=== PATIENT | female | born 1940 ===

== ENCOUNTER → 2018-12-16 | Outpatient (CLI) | payer MEDICARE ==
[~2018-12-16] MED LIST: IBUP200
[2018-12-16 08:50] LABS: BASOPHILS ABSOLUTE AUTO 0.04 K/mm3 (0.00-0.23); BASOPHILS PERCENT AUTO 0 % (0-2); EOSINOPHILS ABSOLUTE AUTO 0.15 K/mm3 (0.00-0.68); EOSINOPHILS PERCENT AUTO 1 % (0-6); Hematocrit 43.5 % (33.0-51.0); Hemoglobin 14.3 g/dL (11.5-16.0); IMMATURE GRAN ABSOLUTE AUTO 0.03 K/mm3 (0.00-0.10); IMMATURE GRAN PERCENT AUTO 0 % (0-1); LYMPHOCYTES ABSOLUTE AUTO 1.92 K/mm3 (0.84-5.20); LYMPHOCYTES PERCENT AUTO 18 % (21-46); MONOCYTES ABSOLUTE AUTO 0.67 K/mm3 (0.16-1.47); MONOCYTES PERCENT AUTO 6 % (4-13); Mean Corpuscular HGB 27.9 pg (26.0-34.0); Mean Corpuscular HGB Conc 32.9 g/dL (31.5-36.5); Mean Corpuscular Volume 85 fL (80-100); Mean Platelet Volume 10.2 fL (9.1-12.4); NEUTROPHILS PERCENT AUTO 73 % (41-73); Platelet Count 264 K/mm3 (150-400); RDW Coefficient Variation 13.7 % (11.7-14.2); RDW Standard Deviation 42.5 fL (35.1-46.3); Red Blood Cell Count 5.12 M/mm3 (3.80-5.20); White Blood Cell Count 10.51 K/mm3 (4.00-11.30)
[2018-12-16 09:03] LABS: Alanine Aminotransfer (ALT/SGP 14 U/L (12-78); Albumin, Blood 3.6 g/dL (3.4-5.0); Albumin/Globulin Ratio 0.9 (0.8-1.8); Alk Phos 74 U/L (40-126); Anion Gap 11 mmol/L (6-16); Aspartate Aminotrans (AST/SGOT 13 U/L (12-37); Bilirubin, Total 0.3 mg/dL (0.1-1.0); Blood Urea Nitrogen 23 mg/dL (8-24); Bun/Creatinine Ratio 29.5 (12.0-20.0); CO2, Blood 25 mmol/L (21-32); Calcium, Blood 8.9 mg/dL (8.5-10.1); Chloride, Blood 103 mmol/L (98-108); Creatinine, Blood 0.78 mg/dL (0.40-1.00); Glomerular Filtration Rate >60 (60-); Glucose, Blood 115 mg/dL (70-99); Potassium, Blood 4.1 mmol/L (3.5-5.5); Sodium, Blood 139 mmol/L (136-145); Total Protein, Blood 7.6 g/dL (6.4-8.2)
== END | disposition home or self-care (01) ==
LOC: LAB SHORT 08:47 → LAB EV 08:47
PROVIDERS: Physician Assistant Medical
DX: M79.602 Pain in left arm (principal)
CPT/HCPCS: 80053; 85025

== ENCOUNTER 2022-11-02 13:09 | Inpatient (IN) | payer OTHER, MEDICARE ==
[~2022-11-02] VITALS: Ht 172.7 cm; Wt 102.7 kg
[2022-11-02 14:53] LABS: BASOPHILS ABSOLUTE AUTO 0.02 K/mm3 (0.00-0.23); BASOPHILS PERCENT AUTO 0 % (0-2); EOSINOPHILS ABSOLUTE AUTO 0.06 K/mm3 (0.00-0.68); EOSINOPHILS PERCENT AUTO 0 % (0-6); Hematocrit 36.8 % (33.0-51.0); Hemoglobin 11.1 g/dL (11.5-16.0); IMMATURE GRAN ABSOLUTE AUTO 0.09 K/mm3 (0.00-0.10); IMMATURE GRAN PERCENT AUTO 1 % (0-1); LYMPHOCYTES ABSOLUTE AUTO 1.56 K/mm3 (0.84-5.20); LYMPHOCYTES PERCENT AUTO 9 % (21-46); MONOCYTES ABSOLUTE AUTO 1.08 K/mm3 (0.16-1.47); MONOCYTES PERCENT AUTO 6 % (4-13); Mean Corpuscular HGB 25.2 pg (26.0-34.0); Mean Corpuscular HGB Conc 30.2 g/dL (31.5-36.5); Mean Corpuscular Volume 84 fL (80-100); Mean Platelet Volume 10.3 fL (9.1-12.4); NEUTROPHILS PERCENT AUTO 84 % (41-73); NRBC ABSOLUTE 0.03 K/mm3 (0.00-0.02); NRBC Auto 0.2 /100 WBC (0.0-0.2); Platelet Count 327 K/mm3 (150-400); RDW Coefficient Variation 16.6 % (11.7-14.2); RDW Standard Deviation 47.5 fL (35.1-46.3); White Blood Cell Count 17.41 K/mm3 (4.00-11.30)
[2022-11-02 14:56] LABS: Source, Urine Foley catheter
[2022-11-02 14:57] LABS: Albumin, Blood 2.2 g/dL (3.4-5.0); Albumin/Globulin Ratio 0.5 (0.8-1.8); Bilirubin, Total 0.8 mg/dL (0.1-1.0); Bun/Creatinine Ratio 90.9 (12.0-20.0); Calcium, Blood 9.3 mg/dL (8.5-10.1); Creatinine, Blood 0.78 mg/dL (0.40-1.00); Globulin, Blood 4.7 g/dL (2.2-4.0); Potassium, Blood 3.7 mmol/L (3.5-5.5); Total Protein, Blood 6.9 g/dL (6.4-8.2)
[2022-11-02 15:15] LABS: Creatine Kinase MB 18.2 ng/mL (0.0-3.6); Creatine Kinase MB Index 4.2 (0.0-4.0)
[2022-11-02 15:16] LABS: Appearance, Urine Cloudy (Clear); Bilirubin, Urine Neg (Neg); Blood, Urine 4+ (Neg); Color, Urine Amber (P-Yellow); Glucose Qualitative, Urine Neg (Neg); Ketones, Urine Neg (Neg); Leukocyte Esterase, Urine 3+ (Neg); Nitrite, Urine Neg (Neg); Protein, Urine 1+ (Neg); Urobilinogen, Urine 1+ (Normal)
[2022-11-02 16:25] LABS: Base Excess Venous 1.9 mmol/L; Bicarbonate Venous 25.8 mmol/L (24.0-30.0); PCO2 Venous 43.6 mmHg (38-42)
[2022-11-02 16:46] LABS: Magnesium, Blood 2.8 mg/dL (1.6-2.4)
[2022-11-02 16:47] LABS: Thyroid Stimulating Hormone 4.09 uIU/mL (0.360-4.800)
[2022-11-02 17:08] LABS: Influenza A, PCR NEGATIVE (NEGATIVE); Influenza B, PCR NEGATIVE (NEGATIVE); Resp Syncytial Virus, PCR NEGATIVE (NEGATIVE); SARS-Cov-2 (COVID-19) PCR, MMC NEGATIVE (NEGATIVE)
[2022-11-02 17:20] LABS: Bacteria Many /hpf; Squamous Epithelial Cells Few /hpf (Few); White Blood Cells, Urine TNTC /hpf (0-5)
[2022-11-02 23:14] LABS: Hematocrit 32.3 % (33.0-51.0); Hemoglobin 9.2 g/dL (11.5-16.0)
[2022-11-02 23:35] LABS: Bun/Creatinine Ratio 73.3 (12.0-20.0); Calcium, Blood 8.4 mg/dL (8.5-10.1); Creatinine, Blood 1.05 mg/dL (0.40-1.00); Potassium, Blood 3.7 mmol/L (3.5-5.5)
[2022-11-03 04:15] LABS: BASOPHILS ABSOLUTE AUTO 0.03 K/mm3 (0.00-0.23); BASOPHILS PERCENT AUTO 0 % (0-2); EOSINOPHILS ABSOLUTE AUTO 0.03 K/mm3 (0.00-0.68); EOSINOPHILS PERCENT AUTO 0 % (0-6); Hematocrit 33.2 % (33.0-51.0); IMMATURE GRAN ABSOLUTE AUTO 0.14 K/mm3 (0.00-0.10); IMMATURE GRAN PERCENT AUTO 1 % (0-1); LYMPHOCYTES ABSOLUTE AUTO 1.55 K/mm3 (0.84-5.20); LYMPHOCYTES PERCENT AUTO 7 % (21-46); MONOCYTES ABSOLUTE AUTO 1.25 K/mm3 (0.16-1.47); MONOCYTES PERCENT AUTO 6 % (4-13); Mean Corpuscular HGB 25.1 pg (26.0-34.0); Mean Corpuscular HGB Conc 30.1 g/dL (31.5-36.5); Mean Corpuscular Volume 83 fL (80-100); Mean Platelet Volume 10.7 fL (9.1-12.4); NEUTROPHILS ABSOLUTE AUTO 17.89 K/mm3 (1.96-9.15); NEUTROPHILS PERCENT AUTO 86 % (41-73); NRBC ABSOLUTE 0.06 K/mm3 (0.00-0.02); NRBC Auto 0.3 /100 WBC (0.0-0.2); Platelet Count 307 K/mm3 (150-400); Red Blood Cell Count 3.99 M/mm3 (3.80-5.20); White Blood Cell Count 20.89 K/mm3 (4.00-11.30)
[2022-11-03 04:35] LABS: Albumin/Globulin Ratio 0.5 (0.8-1.8); Bilirubin, Total 0.8 mg/dL (0.1-1.0); Bun/Creatinine Ratio 71.1 (12.0-20.0); Calcium, Blood 8.5 mg/dL (8.5-10.1); Creatinine, Blood 1.14 mg/dL (0.40-1.00); Globulin, Blood 4.4 g/dL (2.2-4.0); Total Protein, Blood 6.4 g/dL (6.4-8.2)
--- NOTE | 2022-11-03 05:37 | NUR ---
SHIFT SUMMARY: PT ADMITTED TO UNIT AT 0025. TRANSFERED FROM [facility] VIA SLIDER SHEET. PT ORIENTED TO SELF AND LOCATION, MENTATION VARIES, ORIENTED TO ONLY SELF AT TIMES. WOUNDS NOTED ON PT LEFT SIDE, PHTOGRAPHS TAKEN AND PLACED IN CHART. ABRASIANS ALSO NOTED ON PT'S ARMS AND LEGS. PT DENIES HAVING ANY PAIN BUT YELLS OUT WHEN MOVED SUDDENTLY. REPOSITIONED Q2-3H TO PREVENT FURTHER SKIN BREAKDOWN. HR IS SR WITH PVC'S IN 80'S. O2 SATS 98-100 ON RA. AFEBRILE DURING THE NIGHT. MOUTH SWABBED FOR PT COMFORT. FLUIDS RUNNING ORDERED. PROTONIX GTT INFUSING AT 10 ML/HR.
[2022-11-03 11:19] LABS: Hematocrit 33.6 % (33.0-51.0); Hemoglobin 10.1 g/dL (11.5-16.0)
--- NOTE | 2022-11-03 15:54 | NUR ---
UPDATE PT TAKEN TO DAY SURGERY FOR PROCEDURE. WILL AWAIT RETURN
--- NOTE | 2022-11-03 16:36 | NUR ---
11/03/22 1636 Rashida Guidry MONITOR INTACT WITH CONTINUOUS PULSE OXIMETRY AND INTERMITTENT BP. CENTRAL MONITORING TELEMETRY REMOVED AND SENIOR DESIGN ENGINEERING SPECIALIST NOTIFIED.
[2022-11-03 18:33] LABS: Hematocrit 30.6 % (33.0-51.0); Hemoglobin 9.5 g/dL (11.5-16.0)
--- NOTE | 2022-11-03 18:39 | NUR ---
UPDATE PT RETURNED FROM DAY SURGERY. PT ALERT AND AWAKE. ANSWERING QUESTIONS. BP STABLE. HR NSR 70'S. SATS >90% ON RA. PT DENIES ANY PAIN. BED BATH PROVIDED TO PT. HOROWITZ PATENT AND DRAINING CLEAR YELLOW URINE. CATH CARE PROVIDED. FAMILY AT BEDSIDE. WILL CONTINUE TO MONITOR CLOSELY
--- NOTE | 2022-11-04 06:45 | NUR ---
SHIFT SUMMARY: DROWSY BUT EASY TO AROUSE. PT ORIENTED TO SELF ONLY. ANXIOUS, CALLING OUT OCCASIONALLY DURING SHIFT, REQUESTING TO HAVE STAFF STAY IN HER ROOM ALL THE TIME TO KEEP HER COMPANY. CONSOLATION PROVIDED. ABLE TO LEAVE ALOWN WITH REASURANCE OF RETURNING. HR HAS REMAINED IN SR 60-70'S. NO COMPLAINTS OF CHEST PAIN OR SOB. O2 SATS > 92% ON RA. PROTONIX GTT INFUSING AT 10ML/HR. NO STOOLS DURING THIS SHIFT. REPOSITIONED Q2H TO PREVENT FURTHER SKIN BREAKDOWN. HOROWITZ CATHETER DRAINING TEA COLORED URINE WITHOUT DIFFICULTY. NPO AT [place] FOR POTENTIAL PROCEDURE TODAY.
[2022-11-04 08:43] LABS: Hemoglobin 8.6 g/dL (11.5-16.0)
[2022-11-04 09:12] LABS: Bun/Creatinine Ratio 52.6 (12.0-20.0); Creatinine, Blood 1.56 mg/dL (0.40-1.00); Potassium, Blood 3.4 mmol/L (3.5-5.5)
--- NOTE | 2022-11-04 20:16 | NUR ---
ASSUMED PT CARE FROM MINDY GONZALEZ ON . PT SITTING UP IN BED WATCHING TV. PT DOES NOT APPEAR IN ANY VISIBLE DISTRESS. ALERT, ORIENTED X2. ABLE TO ANSWER QUESTIONS FOR ME. PT ASSISTED WITH CLEAR, LIQUID MEAL TRAY. ABLE TO TAKE IN FLUIDS WITHOUT ANY DIFFICUTLY, CHANGE IN VOID, COUGHING, OR CHOAKING. RESPIRATIONS ARE EVEN AND UNLABORED. LUNG HANEY CLEAR. O2 SATS > 92% ON RA. HR TONES REGULAR. NO COMPLAINTS OF CHEST PAIN. FLUIDS AND PROTONIX INFUSING ORDERED. CALL LIGHT IN REACH.
--- NOTE | 2022-11-05 05:02 | NUR ---
SHIFT SUMMARY: PT TOLERATED CLEAR LIQUID DIET LAST NIGHT WITHOUT ANY NAUSEA/VOMITING LAST NIGHT. PT HAS HAD ONE LARGE, LIQUID BLACK STOOL DURING SHIFT AND ONE BLACK SMEAR OF STOOL. PT REPORTS INCONTINANCE AT BASELINE. PROTONIX GTT AND IV FLUIDS INFUSING. CALL LIGHT IN REACH.
--- NOTE | 2022-11-05 05:06 | NUR ---
PT NPO AT MIDNIGHT FOR POSSIBLE PROCEDURE IN A.M.
[2022-11-05 05:08] LABS: Hematocrit 24.1 % (33.0-51.0); Hemoglobin 7.4 g/dL (11.5-16.0); Mean Corpuscular HGB 25.7 pg (26.0-34.0); Mean Corpuscular HGB Conc 30.7 g/dL (31.5-36.5); Mean Corpuscular Volume 84 fL (80-100); Mean Platelet Volume 10.8 fL (9.1-12.4); NRBC ABSOLUTE 0.04 K/mm3 (0.00-0.02); NRBC Auto 0.3 /100 WBC (0.0-0.2); Platelet Count 171 K/mm3 (150-400); RDW Coefficient Variation 16.8 % (11.7-14.2); RDW Standard Deviation 48.4 fL (35.1-46.3); Red Blood Cell Count 2.88 M/mm3 (3.80-5.20); White Blood Cell Count 15.71 K/mm3 (4.00-11.30)
[2022-11-05 05:27] LABS: Albumin, Blood 1.6 g/dL (3.4-5.0); Anion Gap 5 mmol/L (6-16); Blood Urea Nitrogen 65 mg/dL (8-24); Bun/Creatinine Ratio 48.1 (12.0-20.0); CO2, Blood 26 mmol/L (21-32); Calcium, Blood 7.9 mg/dL (8.5-10.1); Chloride, Blood 127 mmol/L (98-108); Creatinine, Blood 1.35 mg/dL (0.40-1.00); Glomerular Filtration Rate 40 (60-); Glucose, Blood 141 mg/dL (70-99); Magnesium, Blood 2.5 mg/dL (1.6-2.4); Phosphorus, Blood 2.7 mg/dL (2.5-4.9); Sodium, Blood 158 mmol/L (136-145)
--- NOTE | 2022-11-05 05:54 | NUR ---
DR. HUFFMAN NOTIFIED OF PT'S A.M. POTASSIUM, SODIUM, AND H&H. STATES HE WILL PLACE ORDERS FOR POTASSIUM SUPPLIMENT. WILL MONITOR SODIUM AND H&H PER INSTRUCTIONS.
[2022-11-05 12:40] LABS: Hematocrit 27.1 % (33.0-51.0); Hemoglobin 8.2 g/dL (11.5-16.0)
[2022-11-05 15:45] LABS: Hematocrit 28.3 % (33.0-51.0); Hemoglobin 8.3 g/dL (11.5-16.0)
--- NOTE | 2022-11-05 18:12 | NUR ---
SHIFT SUMMARY: PT SLEEPS OFTEN T/OUT DAY, BUT AROUSES EASILY TO STAFF IN ROOM, ORIENTED TO SELF, LOCATION, SOME SITUATION, AND IS COOPERATIVE W/CARE. O2 SATS >92% ON RA, DENIES SOB, DENIES CP. PT W/2 LIQUID BLACK BMs THIS SHIFT AND ONE SMEAR. RECTAL TUBE PLACED, PT TOLERATING WELL THUS FAR. INDWELLING HOROWITZ CONTINUES PATENT, DRAINING SLIGHTLY CLOUDY JAMAL COLORED URINE TO GRAVITY. PT W/MINIMAL PO INTAKE, ORAL SWABBING PERFORMED T/OUT DAY. SIABEL, BUS BOY, TO BEDSIDE TO EVALUATE AND PROVIDE WOUND CARE. NEW PHOTOS OBTAINED AND PLACED IN CHART, FOAM BEDDING APPLIED AND PT REPOSITIONED OFTEN T/OUT DAY, BEDBATH PROVIDED. FLUIDS CONTINUE TO INFUSE W/OUT DIFFICULTY. WILL CONTINUE TO MONITOR UNTIL CHANGE OF SHIFT.
[2022-11-06 04:03] LABS: Hematocrit 25.8 % (33.0-51.0); Hemoglobin 7.6 g/dL (11.5-16.0); Mean Corpuscular HGB 25.2 pg (26.0-34.0); Mean Corpuscular HGB Conc 29.5 g/dL (31.5-36.5); Mean Corpuscular Volume 85 fL (80-100); Mean Platelet Volume 11.1 fL (9.1-12.4); Platelet Count 139 K/mm3 (150-400); RDW Coefficient Variation 17.2 % (11.7-14.2); RDW Standard Deviation 48.9 fL (35.1-46.3); Red Blood Cell Count 3.02 M/mm3 (3.80-5.20); White Blood Cell Count 14.67 K/mm3 (4.00-11.30)
[2022-11-06 04:33] LABS: Albumin, Blood 1.6 g/dL (3.4-5.0); Anion Gap 4 mmol/L (6-16); Blood Urea Nitrogen 45 mg/dL (8-24); Bun/Creatinine Ratio 40.5 (12.0-20.0); CO2, Blood 24 mmol/L (21-32); Chloride, Blood 126 mmol/L (98-108); Creatinine, Blood 1.11 mg/dL (0.40-1.00); Glomerular Filtration Rate 50 (60-); Glucose, Blood 161 mg/dL (70-99); Phosphorus, Blood 1.8 mg/dL (2.5-4.9); Potassium, Blood 3.6 mmol/L (3.5-5.5); Sodium, Blood 154 mmol/L (136-145)
[2022-11-06 12:28] LABS: Hematocrit 25.7 % (33.0-51.0); Hemoglobin 7.7 g/dL (11.5-16.0)
--- NOTE | 2022-11-06 14:34 | NUR ---
Pt is alseep when I enterm the room, pt family (Marisel) is visiting with rep from [facility] outside the room. She reports that the pt just went to sleep and doesnt want me to disturb. She advised that the patient will be going to [facility] for rehab after dc from the hospital. We discussed advanced care planning and the possability that the pt wont be able to live alone or care for herself when she is discharged. Marisel reports that she and her fiance, (Noah who is the pt nephew and POA) plane to either move the patient in with them or move in with the patient to help care for her. Marisel also reports that she plans to be come a certified public accountant. Call placed to pt nephewNoah to discuss further adv care planning and if he and his aunt have discussed her wishes if her heart was to stop beating. Noah states, "Do Not make her a DNR." Noah is at work, no further discussion over the phone at this time. Will meet with the patient later today to assess further. Palliative Care will continue to support and follow.
--- NOTE | 2022-11-06 17:53 | NUR ---
SHIFT SUMMARY: NO ACUTE CHANGES T/OUT THE DAY. PT CONTINUES TO SLEEP OFTEN BUT AROUSES EASILY TO STAFF IN ROOM AND IS ORIENTED TO SELF, LOCATION AND SOME SITUATION. O2 SATS MAINTAINED >93% ON RA. PT DENIES SOB, DENIES CP. VSS. INDWELLING HOROWITZ CONTINUES TO DRAIN SLIGHTLY CLOUDY JAMAL COLORED URINE TO GRAVITY. RECTAL TUBE PATENT WITH ONE EPISODE OF PT LEAKING AROUND TUBE. PT RECEIVES BEDBATH. PT TOLERATING CL DIET, UPGRADED TO FL DIET AND IS TOLERATING WELL. WOUND CARE COMPLETED PER ORDERS TODAY, PT REPOSITIONED PER PROTOCOL, FOAM PAD CONTINUES IN PLACE BENEATH PT. AT THIS TIME, PT SITTING UP IN BED W/FAMILY AT BEDSIDE. WILL CONTINUE TO MONITOR AND TREAT ACCORDINGLY UNTIL CHANGE OF SHIFT.
[2022-11-07 04:34] LABS: BASOPHILS ABSOLUTE AUTO 0.02 K/mm3 (0.00-0.23); BASOPHILS PERCENT AUTO 0 % (0-2); EOSINOPHILS ABSOLUTE AUTO 0.15 K/mm3 (0.00-0.68); EOSINOPHILS PERCENT AUTO 1 % (0-6); Hematocrit 23.1 % (33.0-51.0); IMMATURE GRAN ABSOLUTE AUTO 0.07 K/mm3 (0.00-0.10); IMMATURE GRAN PERCENT AUTO 1 % (0-1); LYMPHOCYTES ABSOLUTE AUTO 1.39 K/mm3 (0.84-5.20); LYMPHOCYTES PERCENT AUTO 12 % (21-46); MONOCYTES ABSOLUTE AUTO 0.81 K/mm3 (0.16-1.47); MONOCYTES PERCENT AUTO 7 % (4-13); Mean Corpuscular HGB 25.6 pg (26.0-34.0); Mean Corpuscular HGB Conc 30.3 g/dL (31.5-36.5); Mean Corpuscular Volume 85 fL (80-100); NEUTROPHILS ABSOLUTE AUTO 9.55 K/mm3 (1.96-9.15); NEUTROPHILS PERCENT AUTO 80 % (41-73); Platelet Count 100 K/mm3 (150-400); RDW Coefficient Variation 17.4 % (11.7-14.2); RDW Standard Deviation 48.4 fL (35.1-46.3); Red Blood Cell Count 2.73 M/mm3 (3.80-5.20); White Blood Cell Count 11.99 K/mm3 (4.00-11.30)
[2022-11-07 05:04] LABS: Albumin, Blood 1.4 g/dL (3.4-5.0); Albumin/Globulin Ratio 0.4 (0.8-1.8); Bilirubin, Total 0.5 mg/dL (0.1-1.0); Bun/Creatinine Ratio 28.4 (12.0-20.0); Calcium, Blood 7.3 mg/dL (8.5-10.1); Creatinine, Blood 0.88 mg/dL (0.40-1.00); Globulin, Blood 3.8 g/dL (2.2-4.0); Potassium, Blood 3.4 mmol/L (3.5-5.5); Total Protein, Blood 5.2 g/dL (6.4-8.2)
--- NOTE | 2022-11-07 05:24 | NUR ---
SHIFT SUMMARY PT IS A&OX2-3, SPO2 >95% ON RA, HAS A HOROWITZ DRAINING TO GRAVITY, RECTAL TUBE WAS REPLACED THIS SHIFT WHICH IS DRAINING DARK BROWN/BLACK LOOSE STOOLS, HAS BEEN SR W/ BIGEMINY/TRIGEMINY, Q2 TURN, AND HAS BEEN FAIRLY WEAK/DROWSY THIS SHIFT. PT HAS MORNING LABS AND HBG DROPPED TO 7.[address] HUFFMAN WAS CALLED AND SAID "WE CAN NOT TRANSFUSE YET, BUT WE WILL WATCH HER LIKE A HAWK". HE ORDERED REPEAT H&H FOR 0900 AND HER BLOOD CONSENT IS SIGNED AND IN HER CHART. PT HAS DENIED ANY PAIN AT REST, SOB, ANGINA, AND N/V. WHEN THE PT IS TURNED SHE GETS DIZZY AND HER LEFT SIDE HURTS; ONCE LAYING STILL SHE FEELS FINE. HER BP IS STILL RUNNING SOFT BUT IS STABLE AND SHE HAD FLUIDS RUNNING AT 75ML/HR. BED ALARM ON, BED IN LOW, CALL LIGHT IN REACH. WILL CONTINUE TO MONITOR UNTIL SHIFT REPORT IS GIVEN TO THE ONCOMING SHIFT RN. SEE NOTES FOR ANY UPDATES.
[2022-11-07 10:26] LABS: Hemoglobin 7.7 g/dL (11.5-16.0)
--- NOTE | 2022-11-07 17:41 | NUR ---
TRANFUSION COMPLETE AT 1630, FLUSH COMPLETE AT 1700
--- NOTE | 2022-11-07 17:54 | NUR ---
PT HAS RECIEVED 1 UNIT PRBC THIS SHIFT WHICH HAS FINISHED INFUSING AT THIS TIME, AND WAS TOLERATED WELL. LUNG SOUNDS REMAIN CLEAR PRE AND POST TRANSFUSION. RECTAL TUBE RESEATED IT WAS NOTED TO HAVE LEAK, STOOL IS FIRMING UP BUT STILL THIN ENOUGHT FOR RECTAL TUBE. SHE IS ALERT AND ORIENTED X4. VSS. SHE REPORTS THAT SHE IS FEELING BETTER POST BLOOD TRANSFUSION, REPORTS THAT DIZZINESS SHE HAD BEEN EXPERIENCING HAS NOW RESOLVED. PT WORKED WITH OCCUPATION AND PHYSICAL THERAPY TODAY WHICH WAS TOLERATED WELL. PLAN FOR NPO AT MIDNIGHT, FOR I&D IN THE AM, THEN D/C TO SNF ON SATURDAY
[2022-11-08 01:07] LABS: SARS-Cov-2 (COVID-19) PCR, MMC NEGATIVE (NEGATIVE)
--- NOTE | 2022-11-08 07:51 | NUR ---
NO ACUTE EVENTS OVERNIGHT LAST NIGHT. WOUND DRESSINGS TO LEFT LATERAL HIP CHANGED TWICE DUE TO SATURATION AND ISSUES WITH ADHERENCE OF DRESSING. RECTAL TUBE LEAKING INTERMITTENTLY, APPEARS TO BE POSITIONAL. IN BED APOLINAR CARE IS A CHALLENGE FOR THE PATIENT IT IS PAINFUL FOR HER TO BE ON HER LEFT THIGH FOR ANY PERIOD OF TIME. SHE DENIED NEED FOR ANY ANALGESICS, HOWEVER, AND STATED THAT SHE IS ALLERGIC TO BOTH TYLENOL AND ASPIRIN WHEN ATTEMPTS WERE MADE TO ADMINISTER TYLENOL FOR LOW GRADE FEVER. ALLERGIES UPDATED WITH THIS INFORMATION. DR. BENSON DID STOP BY TO SPEAK WITH THE PATIENT AND ADVISED HER OF THE BIOPSY RESULTS. PATIENT TO BE REFERRED TO ONCOLOGY FOR FURTHER MANAGEMENT OF THE CANCER FINDINGS. PATIENT IS NPO PER DR. PRATT'S ORDER PENDING POSSIBLE DEBRIDEMENT OF NECROTIC WOUND TO LEFT LATERAL THIGH TODAY.
[2022-11-08 11:14] LABS: BASOPHILS ABSOLUTE AUTO 0.03 K/mm3 (0.00-0.23); BASOPHILS PERCENT AUTO 0 % (0-2); EOSINOPHILS ABSOLUTE AUTO 0.23 K/mm3 (0.00-0.68); EOSINOPHILS PERCENT AUTO 2 % (0-6); Hematocrit 27.2 % (33.0-51.0); Hemoglobin 8.5 g/dL (11.5-16.0); IMMATURE GRAN ABSOLUTE AUTO 0.06 K/mm3 (0.00-0.10); IMMATURE GRAN PERCENT AUTO 1 % (0-1); LYMPHOCYTES ABSOLUTE AUTO 1.66 K/mm3 (0.84-5.20); LYMPHOCYTES PERCENT AUTO 14 % (21-46); MONOCYTES ABSOLUTE AUTO 0.84 K/mm3 (0.16-1.47); MONOCYTES PERCENT AUTO 7 % (4-13); Mean Corpuscular HGB 26.6 pg (26.0-34.0); Mean Corpuscular HGB Conc 31.3 g/dL (31.5-36.5); Mean Corpuscular Volume 85 fL (80-100); Mean Platelet Volume 12.1 fL (9.1-12.4); NEUTROPHILS ABSOLUTE AUTO 9.07 K/mm3 (1.96-9.15); NEUTROPHILS PERCENT AUTO 76 % (41-73); Platelet Count 131 K/mm3 (150-400); RDW Coefficient Variation 18.3 % (11.7-14.2); RDW Standard Deviation 49.1 fL (35.1-46.3); Red Blood Cell Count 3.19 M/mm3 (3.80-5.20); White Blood Cell Count 11.89 K/mm3 (4.00-11.30)
[2022-11-08 11:24] LABS: Bun/Creatinine Ratio 18.9 (12.0-20.0); Calcium, Blood 7.1 mg/dL (8.5-10.1); Creatinine, Blood 0.8 mg/dL (0.40-1.00); Potassium, Blood 3.5 mmol/L (3.5-5.5)
--- NOTE | 2022-11-08 18:34 | NUR ---
SHIFT SUMMARY NO ACUTE CHANGES THIS SHIFT. PT ALERT, FORGETFUL. MULTIPLE FAMILY VISITING DURING SHIFT. VSS. MD WARREN IN ROOM TO ASSESS PT. DECIDED NO SURGERY, CONSULTED MD SHAFFER IN WOUND CLINIC. PT HAPPY TO BE ABLE TO EAT. HOROWITZ CATHETER DRAINING TO GRAVITY. RECTAL TUBE DRAINING DARK LIQUID STOOL TO GRAVITY. RECTAL TUBE LEAKS AROUND INSERTION SITE, BRASHER CHANGED, ATTENDS CHANGED. FLUIDS INFUSED PER EMAR. CALL LIGHT IN REACH.
[2022-11-09 06:03] LABS: BASOPHILS ABSOLUTE AUTO 0.03 K/mm3 (0.00-0.23); BASOPHILS PERCENT AUTO 0 % (0-2); EOSINOPHILS ABSOLUTE AUTO 0.23 K/mm3 (0.00-0.68); EOSINOPHILS PERCENT AUTO 2 % (0-6); Hematocrit 27.1 % (33.0-51.0); Hemoglobin 8.3 g/dL (11.5-16.0); IMMATURE GRAN ABSOLUTE AUTO 0.08 K/mm3 (0.00-0.10); IMMATURE GRAN PERCENT AUTO 1 % (0-1); LYMPHOCYTES ABSOLUTE AUTO 1.38 K/mm3 (0.84-5.20); LYMPHOCYTES PERCENT AUTO 12 % (21-46); MONOCYTES ABSOLUTE AUTO 0.82 K/mm3 (0.16-1.47); MONOCYTES PERCENT AUTO 7 % (4-13); Mean Corpuscular HGB Conc 30.6 g/dL (31.5-36.5); Mean Corpuscular Volume 85 fL (80-100); Mean Platelet Volume 11.9 fL (9.1-12.4); NEUTROPHILS PERCENT AUTO 78 % (41-73); Platelet Count 140 K/mm3 (150-400); RDW Coefficient Variation 18.6 % (11.7-14.2); RDW Standard Deviation 50.3 fL (35.1-46.3); Red Blood Cell Count 3.19 M/mm3 (3.80-5.20); White Blood Cell Count 11.54 K/mm3 (4.00-11.30)
--- NOTE | 2022-11-09 06:25 | NUR ---
SHIFT SUMMERY RECTAL TUBE REMOVED DUE TO THICK STOOL. NO BM SINCE TUBE REMOVED APPX 3 HOURS AGO. WOUND CARE PROVIDED PER MD ORDER. PT TOLERATED WELL. NO OTHER ACUTE CHANGES OVERNIGHT.
[2022-11-09 06:40] LABS: Calcium, Blood 7.2 mg/dL (8.5-10.1); Creatinine, Blood 0.76 mg/dL (0.40-1.00); Potassium, Blood 3.2 mmol/L (3.5-5.5)
[2022-11-09] MEDS ORDERED: Acetaminophen650 M1 PO (11:02)
[2022-11-09] MEDS ORDERED: ONDA4ODT MM (11:02)
[2022-11-09] MEDS ORDERED: PANT40 PO (11:03)
[2022-11-09 11:22] LABS: SARS-Cov-2 (COVID-19) PCR, MMC NEGATIVE (NEGATIVE)
[2022-11-09] MEDS ORDERED: VISBIOME 112.51 EACH PO (14:03)
== END 2022-11-09 15:17 | DRG 871 ==
LOC: ER 13:09 → PCU 23:10
PROVIDERS: Family Medicine; Internal Medicine; Student in an Organized Health Care Education/Training Program; ADMIT Internal Medicine
PROC: 3E03329 Introduction of Other Anti-infective into Peripheral Vein, Percutaneous Approach (ICD-10-PCS; principal; 2022-11-02)
PROC: 0DB98ZX Excision of Duodenum, Via Natural or Artificial Opening Endoscopic, Diagnostic (ICD-10-PCS; 2022-11-03)
PROC: 0DB58ZX Excision of Esophagus, Via Natural or Artificial Opening Endoscopic, Diagnostic (ICD-10-PCS; 2022-11-03)
PROC: 30233N1 Transfusion of Nonautologous Red Blood Cells into Peripheral Vein, Percutaneous Approach (ICD-10-PCS; 2022-11-07)
DX: A41.9 Sepsis, unspecified organism (principal); G92.8 Other toxic encephalopathy; E87.1 Hypo-osmolality and hyponatremia; N39.0 Urinary tract infection, site not specified; M62.82 Rhabdomyolysis; N17.9 Acute kidney failure, unspecified; C17.0 Malignant neoplasm of duodenum; E87.0 Hyperosmolality and hypernatremia; L89.329 Pressure ulcer of left buttock, unspecified stage; L89.159 Pressure ulcer of sacral region, unspecified stage; Z20.822 Contact with and (suspected) exposure to COVID-19; E86.0 Dehydration; E87.6 Hypokalemia; Z88.8 Allergy status to other drugs, medicaments and biological substances; Z28.21 Immunization not carried out because of patient refusal; W01.198A Fall on same level from slipping, tripping and stumbling with subsequent striking against other object, initial encounter
CPT/HCPCS: 0241U; 36415; 36430; 51702; 70450; 71045; 73610; 73630; 73701; 80048; 80053; 80069; 81001; 82272; 82550; 82553; 82803; 83605; 83735; 84132; 84295; 84443; 85014; 85018; 85025; 85027; 86850; 86900; 86901; 86923; 87040; 87077; 87086; 87186; 88305; 88312; 88341; 88342; 93005; 93010; 96365; 96366; 96367; 96376; 97110; 97161; 97166; 97530; 99285-25; A9270; C1751; C9113; J0696; J2250; J2370; J2543; J2704; J3010; J3370; J3480; J7030; J7042; J7050; J7060; J7070; J7120; P9016; Q9967; U0004

== ENCOUNTER 2022-11-28 00:23 | Day surgery (SDC) | payer MEDICARE, OTHER ==
[~2022-11-28 00:23] MED LIST changes: +Acetaminophen650 M1 PO; +ONDA4ODT MM; +PANT40 PO; +VISBIOME 112.51 EACH PO
== END 2022-11-28 23:15 | disposition home or self-care (01) ==
LOC: WOUND 00:23
DX: L89.120 Pressure ulcer of left upper back, unstageable (principal); L89.890 Pressure ulcer of other site, unstageable; M62.82 Rhabdomyolysis; C17.0 Malignant neoplasm of duodenum
CPT/HCPCS: G0463

== ENCOUNTER 2022-12-05 03:45 | Day surgery (SDC) | payer MEDICARE, OTHER | END 2022-12-05 23:10 | disposition home or self-care (01) | LOC: WOUND 03:45 | DX: L89.223 Pressure ulcer of left hip, stage 3 (principal); L89.123 Pressure ulcer of left upper back, stage 3; C17.0 Malignant neoplasm of duodenum | CPT/HCPCS: A9270 ==

== ENCOUNTER 2022-12-06 02:40 | Emergency (ER) | payer MEDICARE, OTHER ==
[~2022-12-06] VITALS: Ht 162.6 cm; Wt 90.7 kg
== END 2022-12-06 06:22 ==
LOC: ER 02:40
DX: I46.9 Cardiac arrest, cause unspecified (principal); K92.2 Gastrointestinal hemorrhage, unspecified; D62 Acute posthemorrhagic anemia; Z88.8 Allergy status to other drugs, medicaments and biological substances; Z79.899 Other long term (current) drug therapy
CPT/HCPCS: 31500